=== PATIENT | male | born 1965 | race Caucasian/White ===

== ENCOUNTER 2025-07-01 20:02 | Emergency (ER) | payer MEDICARE, MEDICAID ==
[2025-07-01] MEDS ORDERED: Acetaminophen 500 MG TAB ONE (20:17)
[2025-07-01] MEDS ORDERED: Aspirin Chewable 81 MG TAB ONE (20:18)
[2025-07-01 20:50] LABS: #Basophils 0.1 thou/uL (0.0-0.2); #Eosinophils 0.0 thou/uL (0.0-0.7); #Lymphocytes 1.0 thou/uL (1.20-3.40); #Monocytes 0.8 thou/uL (0.11-0.59); #Neutrophils 12.4 thou/uL (1.40-6.50); %Basophils 0.6 % (0.0-1.0); %Eosinophils 0.1 % (0.0-10.0); %Lymphocytes 7.1 % (21.0-51.0); %Monocytes 5.6 % (0.0-10.0); %Neutrophils 86.6 % (42.0-75.0); Hematocrit 43.2 % (42.0-52.0); Hemoglobin 13.2 g/dL (14.0-18.0); Mean Corpuscular Hemoglobin 28.3 pg (27.0-31.0); Mean Corpuscular Volume 92.7 fl (78.0-98.0); Platelet Count 261 10x3/uL (130-400); Red Blood Cell (RBC) Count 4.66 mill/uL (4.70-6.10); White Blood Cell (WBC) Count 14.4 10x3/uL (4.8-10.8)
[2025-07-01 20:58] LABS: INR-International Normal Ratio 1.1; Prothrombin Time 14.0 sec (12.0-14.7)
[2025-07-01 20:59] LABS: PTT 27.8 sec (22.9-36.1)
[2025-07-01 21:09] LABS: ALT (SGPT) 8 U/L (Less than 45); AST (SGOT) 14 U/L (11-34); Albumin 4.1 g/dL (3.1-4.5); Alkaline Phosphatase 66 U/L (40-110); Anion Gap 17 mmol/L (10-20); BUN (Urea Nitrogen) 12 mg/dL (8.4-25.7); Bilirubin, Total 0.4 mg/dL (0.3-1.2); Calc. Creatinine Clearance 0 mL/min (70-130); Calcium 8.6 mg/dL (7.8-10.44); Carbon Dioxide 25 mmol/L (22-29); Chloride 100 mmol/L (98-107); Globulin 3.0 g/dL (2.4-3.5); Glucose 148 mg/dL (70-105); Potassium 3.8 mmol/L (3.5-5.1); Sodium 138 mmol/L (136-145)
[2025-07-01 21:11] LABS: Troponin I Less than 0.010 ng/mL (< 0.028)
[2025-07-01] MEDS ORDERED: Albuterol 2.5 MG (3 mL) NEB ONE ×2 (21:20→21:34)
[2025-07-01] MEDS ORDERED: cefTRIAXone (ROCEPHIN) 1 GM VIAL ONE (21:59)
[2025-07-01] MEDS ORDERED: Azithromycin 500 MG VIAL ONE (22:33)
[2025-07-01 23:17] LABS: Troponin I 0.010 ng/mL (< 0.028)
== END 2025-07-02 00:10 ==
LOC: MADERS 20:02
DX: J44.1 Chronic obstructive pulmonary disease with (acute) exacerbation (principal); R07.89 Other chest pain; I10 Essential (primary) hypertension; K21.9 Gastro-esophageal reflux disease without esophagitis; E78.5 Hyperlipidemia, unspecified; Z86.73 Personal history of transient ischemic attack (TIA), and cerebral infarction without residual deficits; Z79.899 Other long term (current) drug therapy; Z79.51 Long term (current) use of inhaled steroids; Z79.82 Long term (current) use of aspirin
CPT/HCPCS: 71045; 80053; 83605; 83880; 84484 ×2; 85025; 85379; 85610; 85730; 87040; 87428; 93005; J0456; J0696; J2919; J7030; J7050; 36415; 96365; 96367; 96375; J7611